=== PATIENT | male | born 1990 | race Hispanic/Latino ===

== ENCOUNTER 2023-05-15 15:43 | Emergency (ER) | payer OTHER ==
[2023-05-15] MEDS ORDERED: Ketorolac Tromethamine 30 MG/ML VIAL ONE (17:48)
== END 2023-05-15 17:55 | disposition home or self-care (01) ==
LOC: CSHERS 15:43
DX: I88.9 Nonspecific lymphadenitis, unspecified (principal); Z87.891 Personal history of nicotine dependence
CPT/HCPCS: 96372; 99282; J1885

== ENCOUNTER 2025-05-15 16:53 | Inpatient (IN) | payer BC, OTHER ==
[2025-05-15 18:25] LABS: #Basophils 0.06 10x3/uL (0.0-0.2); #Eosinophils 0.04 10x3/uL (0.0-0.5); #Monocytes 1.42 10x3/uL (0.0-1.1); #Neutrophils 14.52 10x3/uL (1.5-8.4); %Basophils 0.3 % (0.0-2.0); %Eosinophils 0.2 % (0.0-6.0); %Lymphocytes 9.7 % (18.0-47.0); %Monocytes 8.0 % (0.0-10.0); %Neutrophils 81.4 % (40.0-75.0); Hematocrit 37.4 % (38.8-50.0); Hemoglobin 11.9 g/dL (13.5-17.5); Mean Corpuscular Hemoglobin 25.9 pg (27.0-33.0); Mean Corpuscular Volume 81.3 fL (81.2-95.1); Platelet Count 189 10x3/uL (150-450); Red Blood Cell (RBC) Count 4.60 10x6/uL (4.32-5.72); White Blood Cell (WBC) Count 17.85 10x3/uL (3.5-10.5)
[2025-05-15 18:43] LABS: ALT (SGPT) 9 U/L (Less than 45); AST (SGOT) 13 U/L (11-34); Albumin 3.0 g/dL (3.1-4.5); Alkaline Phosphatase 56 U/L (40-110); Anion Gap 10 mmol/L (10-20); BUN (Urea Nitrogen) 9 mg/dL (8.9-20.6); Bilirubin, Total 1.5 mg/dL (0.3-1.2); Calc. Creatinine Clearance 0 mL/min (70-130); Calcium 8.3 mg/dL (7.8-10.44); Carbon Dioxide 24 mmol/L (22-29); Chloride 102 mmol/L (98-107); Globulin 5.8 g/dL (2.4-3.5); Glucose 86 mg/dL (70-105); Potassium 3.8 mmol/L (3.5-5.1); Sodium 132 mmol/L (136-145)
[2025-05-15] MEDS ORDERED: Guaifenesin DM 100-10/5 ML UDCUP PO PRN (21:15)
[2025-05-15] MEDS ORDERED: Ondansetron PF 4 MG/2 ML Vial IVP PRN (21:15)
[2025-05-15] MEDS ORDERED: Calcium Carbonate 500 MG ChewTAB PO PRN (21:15)
[2025-05-15] MEDS ORDERED: Melatonin 3 MG TAB PO PRN (21:15)
[2025-05-15] MEDS ORDERED: Acetaminophen 325 MG TAB PO PRN (21:15)
[2025-05-15] MEDS: Clindamycin/D5W 600 MG in Premix 1 BAG IVPB SCH (21:38)
[2025-05-15] MEDS ORDERED: Pantoprazole 40 MG VIAL ONE (22:54)
[2025-05-15] MEDS: Pantoprazole 40 MG VIAL IVP SCH (23:06)
[2025-05-15] MEDS ORDERED: cefTRIAXone (ROCEPHIN) 500 MG VIAL ONE (23:12)
[2025-05-15] MEDS ORDERED: cefTRIAXone (ROCEPHIN) 2 GM VIAL ONE (23:13)
[2025-05-15] MEDS: cefTRIAXone\\ROCEPHIN 2 GM in Sodium Chloride 0.9% 100 ML IVPB SCH (23:18)
[2025-05-16 05:44] LABS: #Basophils 0.06 10x3/uL (0.0-0.2); #Eosinophils 0.19 10x3/uL (0.0-0.5); #Monocytes 1.19 10x3/uL (0.0-1.1); #Neutrophils 7.66 10x3/uL (1.5-8.4); %Basophils 0.5 % (0.0-2.0); %Eosinophils 1.7 % (0.0-6.0); %Lymphocytes 16.6 % (18.0-47.0); %Monocytes 10.9 % (0.0-10.0); %Neutrophils 69.9 % (40.0-75.0); Hematocrit 34.1 % (38.8-50.0); Hemoglobin 11.1 g/dL (13.5-17.5); Mean Corpuscular Hemoglobin 27.0 pg (27.0-33.0); Mean Corpuscular Volume 83.0 fL (81.2-95.1); Platelet Count 175 10x3/uL (150-450); Red Blood Cell (RBC) Count 4.11 10x6/uL (4.32-5.72); White Blood Cell (WBC) Count 10.96 10x3/uL (3.5-10.5)
[2025-05-16 05:57] LABS: Anion Gap 10 mmol/L (10-20); BUN (Urea Nitrogen) 9 mg/dL (8.9-20.6); Calc. Creatinine Clearance 0 mL/min (70-130); Calcium 7.9 mg/dL (7.8-10.44); Carbon Dioxide 24 mmol/L (22-29); Chloride 104 mmol/L (98-107); Glucose 90 mg/dL (70-105); Potassium 3.7 mmol/L (3.5-5.1); Sodium 134 mmol/L (136-145)
[2025-05-16] MEDS: Clindamycin/D5W 600 MG in Premix 1 BAG IVPB SCH (06:02)
[2025-05-16] MEDS ORDERED: Famotidine 20 MG TAB ONE (07:03)
[2025-05-16] MEDS ORDERED: Enoxaparin 40 MG (0.4 mL) SYRINGE ONE (07:12)
[2025-05-16] MEDS: Famotidine 20 MG TAB PO SCH (07:45)
[2025-05-16] MEDS: Enoxaparin 40 MG (0.4 mL) SYRINGE SC SCH (07:46)
[2025-05-16 14:17] VITALS: BMI 83.7
[2025-05-17 05:48] LABS: #Basophils 0.03 10x3/uL (0.0-0.2); #Eosinophils 0.27 10x3/uL (0.0-0.5); #Monocytes 1.01 10x3/uL (0.0-1.1); #Neutrophils 3.56 10x3/uL (1.5-8.4); %Basophils 0.4 % (0.0-2.0); %Eosinophils 3.9 % (0.0-6.0); %Lymphocytes 28.4 % (18.0-47.0); %Monocytes 14.8 % (0.0-10.0); %Neutrophils 52.1 % (40.0-75.0); Hematocrit 35.0 % (38.8-50.0); Hemoglobin 10.8 g/dL (13.5-17.5); Mean Corpuscular Hemoglobin 25.7 pg (27.0-33.0); Mean Corpuscular Volume 83.3 fL (81.2-95.1); Platelet Count 177 10x3/uL (150-450); Red Blood Cell (RBC) Count 4.20 10x6/uL (4.32-5.72); White Blood Cell (WBC) Count 6.84 10x3/uL (3.5-10.5)
[2025-05-17 06:04] LABS: Anion Gap 10 mmol/L (10-20); BUN (Urea Nitrogen) 13 mg/dL (8.9-20.6); Calc. Creatinine Clearance 504 mL/min (70-130); Calcium 8.0 mg/dL (7.8-10.44); Carbon Dioxide 25 mmol/L (22-29); Chloride 103 mmol/L (98-107); Glucose 103 mg/dL (70-105); Potassium 4.3 mmol/L (3.5-5.1); Sodium 134 mmol/L (136-145)
[2025-05-17] MEDS: Senokot S 8.6-50 MG TAB PO PRN (21:38)
[2025-05-18 05:17] LABS: #Basophils 0.04 10x3/uL (0.0-0.2); #Eosinophils 0.23 10x3/uL (0.0-0.5); #Monocytes 0.71 10x3/uL (0.0-1.1); #Neutrophils 2.87 10x3/uL (1.5-8.4); %Basophils 0.7 % (0.0-2.0); %Eosinophils 3.8 % (0.0-6.0); %Lymphocytes 35.7 % (18.0-47.0); %Monocytes 11.8 % (0.0-10.0); %Neutrophils 47.5 % (40.0-75.0); Hematocrit 34.8 % (38.8-50.0); Hemoglobin 10.7 g/dL (13.5-17.5); Mean Corpuscular Hemoglobin 25.9 pg (27.0-33.0); Mean Corpuscular Volume 84.3 fL (81.2-95.1); Platelet Count 192 10x3/uL (150-450); Red Blood Cell (RBC) Count 4.13 10x6/uL (4.32-5.72); White Blood Cell (WBC) Count 6.03 10x3/uL (3.5-10.5)
[2025-05-18 05:31] LABS: Anion Gap 11 mmol/L (10-20); BUN (Urea Nitrogen) 12 mg/dL (8.9-20.6); Calc. Creatinine Clearance 512 mL/min (70-130); Calcium 8.0 mg/dL (7.8-10.44); Carbon Dioxide 26 mmol/L (22-29); Chloride 102 mmol/L (98-107); Glucose 95 mg/dL (70-105); Potassium 4.3 mmol/L (3.5-5.1); Sodium 135 mmol/L (136-145)
[2025-05-18] MEDS ORDERED: Ketorolac Tromethamine 30 MG (1 mL) VIAL IVP PRN (09:00)
[2025-05-18] MEDS: Gabapentin 300 MG CAP PO SCH (15:34)
[2025-05-19 03:59] LABS: #Basophils 0.05 10x3/uL (0.0-0.2); #Eosinophils 0.25 10x3/uL (0.0-0.5); #Monocytes 0.84 10x3/uL (0.0-1.1); #Neutrophils 3.26 10x3/uL (1.5-8.4); %Basophils 0.7 % (0.0-2.0); %Eosinophils 3.7 % (0.0-6.0); %Lymphocytes 35.0 % (18.0-47.0); %Monocytes 12.3 % (0.0-10.0); %Neutrophils 47.7 % (40.0-75.0); Hematocrit 35.8 % (38.8-50.0); Hemoglobin 10.8 g/dL (13.5-17.5); Mean Corpuscular Hemoglobin 25.4 pg (27.0-33.0); Mean Corpuscular Volume 84.0 fL (81.2-95.1); Platelet Count 218 10x3/uL (150-450); Red Blood Cell (RBC) Count 4.26 10x6/uL (4.32-5.72); White Blood Cell (WBC) Count 6.83 10x3/uL (3.5-10.5)
[2025-05-19 04:14] LABS: Anion Gap 12 mmol/L (10-20); BUN (Urea Nitrogen) 11 mg/dL (8.9-20.6); Calc. Creatinine Clearance 489 mL/min (70-130); Calcium 8.1 mg/dL (7.8-10.44); Carbon Dioxide 26 mmol/L (22-29); Chloride 102 mmol/L (98-107); Glucose 113 mg/dL (70-105); Potassium 4.2 mmol/L (3.5-5.1); Sodium 136 mmol/L (136-145)
[2025-05-19] MEDS: Furosemide 100 MG (10 mL) VIAL SLOW IVP SCH (10:24)
[2025-05-19] MEDS: Clindamycin/D5W 900 MG in Premix 1 BAG IVPB SCH (13:50)
[2025-05-20 10:42] VITALS: TEMP 98.2
[2025-05-20 18:06] VITALS: BP 125/65
== END 2025-05-20 22:11 | disposition home or self-care (01) | DRG 872 ==
LOC: CSHERS 16:53 → CSHERHOLD 20:25 → OBSVTOIN 21:15 → CSHTELE 05-16 10:50
PROVIDERS: ADMIT Student in an Organized Health Care Education/Training Program; ATTEND Hospitalist
PROC: 3E03329 Introduction of Other Anti-infective into Peripheral Vein, Percutaneous Approach (ICD-10-PCS; principal; 2025-05-15)
PROC: 5A09357 Assistance with Respiratory Ventilation, Less than 24 Consecutive Hours, Continuous Positive Airway Pressure (ICD-10-PCS; 2025-05-16)
DX: A41.9 Sepsis, unspecified organism (principal); L03.116 Cellulitis of left lower limb; Z68.45 Body mass index [BMI] 70 or greater, adult; E66.01 Morbid (severe) obesity due to excess calories; G89.29 Other chronic pain; G47.33 Obstructive sleep apnea (adult) (pediatric); I89.0 Lymphedema, not elsewhere classified; E88.09 Other disorders of plasma-protein metabolism, not elsewhere classified; Z88.1 Allergy status to other antibiotic agents; Z87.891 Personal history of nicotine dependence; Z99.81 Dependence on supplemental oxygen; Z71.3 Dietary counseling and surveillance
CPT/HCPCS: 36415; 80048; 80053; 83036; 83605; 84145; 85025; 86140; 87040; 87081; 94660; 94760; 96365; 96375; 97139; J0696; J1650; J1940; J2270; J2272; J2470; J3490; J7120

== ENCOUNTER 2025-08-18 21:20 | Emergency (ER) | payer BC ==
[2025-08-18] MEDS ORDERED: Acetaminophen 500 MG TAB ONE (21:36)
[2025-08-18 21:57] LABS: Hematocrit 40.0 % (38.8-50.0); Hemoglobin 13.2 g/dL (13.5-17.5); INR-International Normal Ratio 1.1; Mean Corpuscular Hemoglobin 26.8 pg (27.0-33.0); Mean Corpuscular Volume 81.3 fL (81.2-95.1); PTT 28.7 sec (22.0-33.0); Platelet Count 199 10x3/uL (150-450); Prothrombin Time 12.1 sec (9.5-12.1); Red Blood Cell (RBC) Count 4.92 10x6/uL (4.32-5.72); White Blood Cell (WBC) Count 20.41 10x3/uL (3.5-10.5)
[2025-08-18 22:01] LABS: ALT (SGPT) 12 U/L (Less than 45); AST (SGOT) 18 U/L (11-34); Albumin 3.3 g/dL (3.1-4.5); Alkaline Phosphatase 69 U/L (40-110); Anion Gap 14 mmol/L (10-20); BUN (Urea Nitrogen) 10 mg/dL (8.9-20.6); Bilirubin, Total 1.3 mg/dL (0.3-1.2); Calc. Creatinine Clearance 0 mL/min (70-130); Calcium 8.2 mg/dL (7.8-10.44); Carbon Dioxide 21 mmol/L (22-29); Chloride 102 mmol/L (98-107); Globulin 5.0 g/dL (2.4-3.5); Glucose 105 mg/dL (70-105); MDiff Complete? YES; Platelet Adequacy Comment Appears Adequate; Potassium 3.8 mmol/L (3.5-5.1); RBC Morphology Within Normal Limits; Sodium 133 mmol/L (136-145)
[2025-08-19] MEDS ORDERED: Clindamycin/D5W 600 MG in Premix 1 BAG IVPB SCH (01:00)
== END 2025-08-19 01:54 | disposition short-term general hospital (02) ==
LOC: CSHERS 21:20
DX: A41.9 Sepsis, unspecified organism (principal); L03.116 Cellulitis of left lower limb; E66.9 Obesity, unspecified; Z87.891 Personal history of nicotine dependence
CPT/HCPCS: 36415; 80053; 83605; 85025; 85610; 85730; 93005; 94760; 96374; J3490

== ENCOUNTER 2025-09-20 06:45 | Inpatient (IN) | payer BC ==
[2025-09-20 08:11] LABS: #Basophils 0.05 10x3/uL (0.0-0.2); #Eosinophils 0.04 10x3/uL (0.0-0.5); #Monocytes 0.86 10x3/uL (0.0-1.1); #Neutrophils 14.09 10x3/uL (1.5-8.4); %Basophils 0.3 % (0.0-2.0); %Eosinophils 0.2 % (0.0-6.0); %Lymphocytes 5.4 % (18.0-47.0); %Monocytes 5.4 % (0.0-10.0); %Neutrophils 88.0 % (40.0-75.0); Hematocrit 41.9 % (38.8-50.0); Hemoglobin 13.1 g/dL (13.5-17.5); Mean Corpuscular Hemoglobin 26.1 pg (27.0-33.0); Mean Corpuscular Volume 83.6 fL (81.2-95.1); Platelet Count 195 10x3/uL (150-450); Red Blood Cell (RBC) Count 5.01 10x6/uL (4.32-5.72); White Blood Cell (WBC) Count 16.03 10x3/uL (3.5-10.5)
[2025-09-20] MEDS ORDERED: Acetaminophen 500 MG TAB ONE (08:12)
[2025-09-20] MEDS ORDERED: Ketorolac Tromethamine 30 MG (1 mL) VIAL ONE (08:12)
[2025-09-20] MEDS ORDERED: Metoclopramide HCl 10 MG (2 mL) VIAL ONE (08:12)
[2025-09-20] MEDS ORDERED: LevoFLOXacin 750 mg/D5W 150 ml Premix Bag ONE (08:13)
[2025-09-20 08:48] LABS: ALT (SGPT) 13 U/L (Less than 45); AST (SGOT) 16 U/L (11-34); Albumin 3.3 g/dL (3.1-4.5); Alkaline Phosphatase 70 U/L (40-110); Anion Gap 13 mmol/L (10-20); BUN (Urea Nitrogen) 10 mg/dL (8.9-20.6); Bilirubin, Total 1.0 mg/dL (0.3-1.2); Calc. Creatinine Clearance 0 mL/min (70-130); Calcium 8.5 mg/dL (7.8-10.44); Carbon Dioxide 23 mmol/L (22-29); Chloride 102 mmol/L (98-107); Globulin 4.6 g/dL (2.4-3.5); Glucose 92 mg/dL (70-105); Potassium 4.1 mmol/L (3.5-5.1); Sodium 134 mmol/L (136-145)
[2025-09-20 08:51] LABS: Troponin I Less than 0.010 ng/mL (< 0.028)
[2025-09-20] MEDS ORDERED: HYDROcodone/Acetaminophen 5/325 mg Tablet ONE ×2 (10:48→15:39)
[2025-09-20] MEDS ORDERED: Senokot S 8.6-50 MG TAB PO PRN (12:22)
[2025-09-20] MEDS ORDERED: Melatonin 3 MG TAB PO PRN (12:22)
[2025-09-20] MEDS ORDERED: Ondansetron PF 4 MG/2 ML Vial IVP PRN (12:22)
[2025-09-20] MEDS ORDERED: Clindamycin/D5W 900 MG in Premix 1 BAG IVPB SCH (13:00)
[2025-09-20] MEDS: Clindamycin/D5W 900 MG in Premix 1 BAG IVPB SCH (14:22)
[2025-09-20 14:35] LABS: Glucose, Urine (Dipstick) Normal (Negative); Leukocyte Negative (Negative); Protein, Urine (Dipstick) 15 mg/dl (Neg-Trace); Specific Gravity, Urine 1.010 (1.005-1.030)
[2025-09-20 15:10] LABS: CAUTI Indications for Culture Pelvic or flank pain; RBC/HPF 0-3 HPF (0-3)
[2025-09-20 15:16] LABS: Bacteria/HPF 2+ HPF (None Seen); Mucous/LPF 2+ LPF (<2+)
[2025-09-20 15:18] LABS: Urine Culture Reflex No No
[2025-09-20 22:44] VITALS: BMI 60.2
[2025-09-20] MEDS: HYDROcodone/Acetaminophen 5/325 mg Tablet PO PRN (23:33)
[2025-09-21 05:12] LABS: #Basophils 0.03 10x3/uL (0.0-0.2); #Eosinophils 0.13 10x3/uL (0.0-0.5); #Monocytes 1.39 10x3/uL (0.0-1.1); #Neutrophils 7.00 10x3/uL (1.5-8.4); %Basophils 0.3 % (0.0-2.0); %Eosinophils 1.3 % (0.0-6.0); %Lymphocytes 15.3 % (18.0-47.0); %Monocytes 13.7 % (0.0-10.0); %Neutrophils 68.8 % (40.0-75.0); Hematocrit 36.1 % (38.8-50.0); Hemoglobin 11.5 g/dL (13.5-17.5); Mean Corpuscular Hemoglobin 26.4 pg (27.0-33.0); Mean Corpuscular Volume 83.0 fL (81.2-95.1); Platelet Count 180 10x3/uL (150-450); Red Blood Cell (RBC) Count 4.35 10x6/uL (4.32-5.72); White Blood Cell (WBC) Count 10.16 10x3/uL (3.5-10.5)
[2025-09-21 05:28] LABS: Anion Gap 7 mmol/L (10-20); BUN (Urea Nitrogen) 9 mg/dL (8.9-20.6); Calc. Creatinine Clearance 369 mL/min (70-130); Calcium 8.2 mg/dL (7.8-10.44); Carbon Dioxide 26 mmol/L (22-29); Chloride 103 mmol/L (98-107); Glucose 91 mg/dL (70-105); Potassium 3.5 mmol/L (3.5-5.1); Sodium 132 mmol/L (136-145)
[2025-09-21] MEDS: Ketorolac Tromethamine 30 MG (1 mL) VIAL IVP PRN (07:50)
[2025-09-21] MEDS: Enoxaparin 60 MG (0.6 mL) SYRINGE SC SCH (08:01)
[2025-09-21] MEDS: Acetaminophen 325 MG TAB PO PRN (13:37)
[2025-09-21] MEDS: Gabapentin 100 MG CAP PO SCH (17:22)
[2025-09-22 04:38] LABS: #Basophils 0.03 10x3/uL (0.0-0.2); #Eosinophils 0.27 10x3/uL (0.0-0.5); #Monocytes 1.30 10x3/uL (0.0-1.1); #Neutrophils 4.04 10x3/uL (1.5-8.4); %Basophils 0.4 % (0.0-2.0); %Eosinophils 3.6 % (0.0-6.0); %Lymphocytes 24.5 % (18.0-47.0); %Monocytes 17.2 % (0.0-10.0); %Neutrophils 53.6 % (40.0-75.0); Hematocrit 35.0 % (38.8-50.0); Hemoglobin 11.2 g/dL (13.5-17.5); Mean Corpuscular Hemoglobin 26.4 pg (27.0-33.0); Mean Corpuscular Volume 82.4 fL (81.2-95.1); Platelet Count 183 10x3/uL (150-450); Red Blood Cell (RBC) Count 4.25 10x6/uL (4.32-5.72); White Blood Cell (WBC) Count 7.54 10x3/uL (3.5-10.5)
[2025-09-22 04:52] LABS: Anion Gap 9 mmol/L (10-20); BUN (Urea Nitrogen) 15 mg/dL (8.9-20.6); Calc. Creatinine Clearance 342 mL/min (70-130); Calcium 8.3 mg/dL (7.8-10.44); Carbon Dioxide 24 mmol/L (22-29); Chloride 106 mmol/L (98-107); Glucose 105 mg/dL (70-105); Potassium 3.9 mmol/L (3.5-5.1); Sodium 135 mmol/L (136-145)
[2025-09-22] MEDS: Gabapentin 100 MG CAP PO SCH ×2 (09:52→13:59)
[2025-09-23 04:59] LABS: #Basophils 0.03 10x3/uL (0.0-0.2); #Eosinophils 0.29 10x3/uL (0.0-0.5); #Monocytes 0.76 10x3/uL (0.0-1.1); #Neutrophils 2.94 10x3/uL (1.5-8.4); %Basophils 0.5 % (0.0-2.0); %Eosinophils 4.8 % (0.0-6.0); %Lymphocytes 32.8 % (18.0-47.0); %Monocytes 12.5 % (0.0-10.0); %Neutrophils 48.6 % (40.0-75.0); Hematocrit 34.4 % (38.8-50.0); Hemoglobin 11.0 g/dL (13.5-17.5); Mean Corpuscular Hemoglobin 26.5 pg (27.0-33.0); Mean Corpuscular Volume 82.9 fL (81.2-95.1); Platelet Count 199 10x3/uL (150-450); Red Blood Cell (RBC) Count 4.15 10x6/uL (4.32-5.72); White Blood Cell (WBC) Count 6.06 10x3/uL (3.5-10.5)
[2025-09-23 05:09] LABS: Anion Gap 11 mmol/L (10-20); BUN (Urea Nitrogen) 10 mg/dL (8.9-20.6); Calc. Creatinine Clearance 387 mL/min (70-130); Calcium 8.4 mg/dL (7.8-10.44); Carbon Dioxide 25 mmol/L (22-29); Chloride 104 mmol/L (98-107); Glucose 86 mg/dL (70-105); Potassium 3.9 mmol/L (3.5-5.1); Sodium 136 mmol/L (136-145)
[2025-09-24 04:55] LABS: #Basophils 0.05 10x3/uL (0.0-0.2); #Eosinophils 0.27 10x3/uL (0.0-0.5); #Monocytes 0.67 10x3/uL (0.0-1.1); #Neutrophils 2.99 10x3/uL (1.5-8.4); %Basophils 0.8 % (0.0-2.0); %Eosinophils 4.2 % (0.0-6.0); %Lymphocytes 37.3 % (18.0-47.0); %Monocytes 10.4 % (0.0-10.0); %Neutrophils 46.4 % (40.0-75.0); Hematocrit 35.8 % (38.8-50.0); Hemoglobin 11.7 g/dL (13.5-17.5); Mean Corpuscular Hemoglobin 27.3 pg (27.0-33.0); Mean Corpuscular Volume 83.4 fL (81.2-95.1); Platelet Count 215 10x3/uL (150-450); Red Blood Cell (RBC) Count 4.29 10x6/uL (4.32-5.72); White Blood Cell (WBC) Count 6.44 10x3/uL (3.5-10.5)
[2025-09-24 05:09] LABS: Anion Gap 12 mmol/L (10-20); BUN (Urea Nitrogen) 11 mg/dL (8.9-20.6); Calc. Creatinine Clearance 357 mL/min (70-130); Calcium 8.4 mg/dL (7.8-10.44); Carbon Dioxide 25 mmol/L (22-29); Glucose 92 mg/dL (70-105); Potassium 4.3 mmol/L (3.5-5.1); Sodium 137 mmol/L (136-145)
[2025-09-24 05:14] LABS: Chloride 104 mmol/L (98-107)
[2025-09-24] MEDS ORDERED: Ibuprofen 200 MG TAB PO PRN (09:18)
[2025-09-24] MEDS ORDERED: Acetaminophen 325 MG TAB PO PRN (09:19)
[2025-09-24] MEDS: Acetaminophen 325 MG TAB PO SCH (16:07)
[2025-09-24] MEDS: Ammonium Lactate 12% Lotion 225 GM BOT TOP SCH (20:39)
[2025-09-24] MEDS: Senokot S 8.6-50 MG TAB PO SCH (20:40)
[2025-09-26 05:13] LABS: #Basophils 0.05 10x3/uL (0.0-0.2); #Eosinophils 0.25 10x3/uL (0.0-0.5); #Monocytes 0.85 10x3/uL (0.0-1.1); #Neutrophils 2.93 10x3/uL (1.5-8.4); %Basophils 0.7 % (0.0-2.0); %Eosinophils 3.5 % (0.0-6.0); %Lymphocytes 41.0 % (18.0-47.0); %Monocytes 11.9 % (0.0-10.0); %Neutrophils 41.1 % (40.0-75.0); Hematocrit 37.5 % (38.8-50.0); Hemoglobin 12.1 g/dL (13.5-17.5); Mean Corpuscular Hemoglobin 26.8 pg (27.0-33.0); Mean Corpuscular Volume 83.1 fL (81.2-95.1); Platelet Count 241 10x3/uL (150-450); Red Blood Cell (RBC) Count 4.51 10x6/uL (4.32-5.72); White Blood Cell (WBC) Count 7.13 10x3/uL (3.5-10.5)
[2025-09-26 05:25] LABS: Anion Gap 11 mmol/L (10-20); BUN (Urea Nitrogen) 13 mg/dL (8.9-20.6); Calc. Creatinine Clearance 500 mL/min (70-130); Calcium 8.7 mg/dL (7.8-10.44); Carbon Dioxide 26 mmol/L (22-29); Chloride 101 mmol/L (98-107); Glucose 83 mg/dL (70-105); Potassium 4.3 mmol/L (3.5-5.1); Sodium 134 mmol/L (136-145)
[2025-09-26] MEDS ORDERED: Milk Of Magnesia 30 ML UDCUP PO PRN (11:14)
[2025-09-26] MEDS: Milk Of Magnesia 30 ML UDCUP PO SCH (14:17)
[2025-09-28 12:58] VITALS: BP 137/86; TEMP 98.3
== END 2025-09-28 15:26 | disposition home or self-care (01) | DRG 872 ==
LOC: CSHERS 06:45 → CSHERHOLD 10:11 → CSHTELE 22:23
PROVIDERS: ADMIT Family Medicine; ATTEND Internal Medicine
PROC: 5A09357 Assistance with Respiratory Ventilation, Less than 24 Consecutive Hours, Continuous Positive Airway Pressure (ICD-10-PCS; principal; 2025-09-20)
PROC: 3E03329 Introduction of Other Anti-infective into Peripheral Vein, Percutaneous Approach (ICD-10-PCS; 2025-09-20)
PROC: 5A09357 Assistance with Respiratory Ventilation, Less than 24 Consecutive Hours, Continuous Positive Airway Pressure (ICD-10-PCS; 2025-09-23)
DX: A41.9 Sepsis, unspecified organism (principal); L03.116 Cellulitis of left lower limb; Z68.45 Body mass index [BMI] 70 or greater, adult; E87.1 Hypo-osmolality and hyponatremia; Z88.1 Allergy status to other antibiotic agents; Z88.8 Allergy status to other drugs, medicaments and biological substances; G47.33 Obstructive sleep apnea (adult) (pediatric); Z87.891 Personal history of nicotine dependence; E66.01 Morbid (severe) obesity due to excess calories; R65.20 Severe sepsis without septic shock
CPT/HCPCS: 36415; 80048; 80053; 81001; 83036; 83605; 83880; 84484; 85025; 86140; 87040; 87086; 93005; 93010; 93923; 94760; 96365; 96366; 96368; 96375; J0878; J1650; J1885; J1956; J2765; J3490